=== PATIENT | female | born 1985 | race Caucasian/White ===

== ENCOUNTER 2020-07-03 16:16 | Emergency (ER) | payer BC, SELFPAY ==
[2020-07-03] VITALS (7 sets, daily range): BP systolic 124–147; BP diastolic 80–94; PULSE 61–73; RESP 15–21; TEMP 36.5–37; O2SAT 99–100
--- NOTE | 2020-07-03 17:03 | ECG_ITS ---
Measurements Intervals [place] Rate: 71 P: 58 HI: 130 QRS: 22 QRSD: 90 T: 49 QT: 382 QTc: 418 Interpretive Statements SINUS RHYTHM LOW QRS VOLTAGE IN PRECORDIAL LEADS BORDERLINE ECG Electronically Signed On 07-03-2020 18:24:12 BURN TABLE OPERATOR by Figueroa Braswell D.O.
[2020-07-03 17:11] LABS: Basophils Absolute Auto 0.1 K/mm3 (0.0-0.1); Basophils Percent Auto 0.6 % (0.2-1.2); Eosinophils Absolute Auto 0.3 K/mm3 (0-0.3); Eosinophils Percent Auto 3.8 % (0-4.4); Hematocrit 38.5 % (37.0-47.0); Hemoglobin 13.1 g/dL (12.0-15.0); Immature Granulocyte Absolute 0.02 K/mm3 (0.00-0.031); Immature Granulocyte Percent A 0.3 % (0-0.5); Lymphocytes Absolute Auto 2.69 K/mm3 (0.9-3.2); Lymphocytes Percent Auto 34.9 % (18.3-44.2); Mean Corpuscular Hemoglobin 32.7 pg (26-34); Mean Platelet Volume 9.8 fl (7.4-10.4); Monocytes Absolute Auto 0.6 K/mm3 (0.1-0.6); Monocytes Percent Auto 8.3 % (2.6-8.5); Neutrophils Percent Auto 52.1 % (45.5-73.1); Platelet Count Result 238 k/mm3 (150-375); Red Blood Count 4.01 M/mm3 (4.2-5.4); Red Cell Distribution Width 12.8 % (11.5-14.5); White Blood Count 7.7 K/mm3 (4.5-10.0)
[2020-07-03 17:26] LABS: Anion Gap 5 mmol/L (8-16); Blood Urea Nitrogen 8 mg/dL (7-17); Calcium 8.1 mg/dL (8.4-10.2); Carbon Dioxide 25 mmol/L (22-30); Chloride 108 mmol/L (98-107); Estimated CRCL calculation 80 ml/min; Estimated Glomerular Filt Rate > 60; Glucose 83 mg/dL (65-105); Potassium 3.8 mmol/L (3.4-5.0); Sodium 138 mmol/L (137-145)
[2020-07-03] MEDS: SODIUM CHLORIDE 0.9% IV 1,000 ML 999 ML IV CONT (19:02)
[2020-07-03 19:05] LABS: Add Urine Microscopic? NO; Appearance Urine Clear (Clear); Bacteria Urine Trace /hpf; Bilirubin Urine Negative (Negative); Blood Urine Negative (Negative); Color Urine Straw (Yellow); Glucose Urine UA Negative (Negative); Ketones Urine Negative (Negative); Leukocyte Esterase Ur Negative LEU/UL (Negative); Mucus Urine Rare /lpf; Nitrate Urine Negative (Negative); Protein Urine Negative (Negative); Specific Grav Ur 1.011 (1.001-1.035); Squamous Epithelial Cell Urine Rare /hpf (Few); Urobilinogen Urine Negative mg/dL (<2.0); WBC Urine 0-3 /hpf
--- NOTE | 2020-07-03 19:53 | PC.NURSE ---
pt declined morphine, would like tylenol if possible
--- NOTE | 2020-07-03 19:55 | PC.NURSE ---
RN informed Dr. Boone that pt does not want morphine and would like tylenol instead. verbal order for mg of tylenol po.
--- NOTE | 2020-07-03 20:14 | ED.DIZZY ---
HPI - Dizziness General Chief Complaint: Syncope Stated Complaint: dizzy, diarrhea, syncopal episode wednesday Time Seen by Provider: 07/03/20 18:03 Source: patient Mode of arrival: ambulatory Limitations: no limitations History of Present Illness HPI Narrative: 34-year-old with a history of gastric bypass here with complaints of dizziness since yesterday. Patient states that every time she stands up from a sitting position she gets extremely dizzy. She states that she passed out for few seconds yesterday at work. Complains of headache on and off. No history of nausea or vomiting. She states that her p.o. intake has been less for last few days. No history of abdominal pain. MD elicited complaint: dizziness and near syncope Onset (ago): day(s) (1) Severity: moderate Description: near-syncope Context: change in body position History of similar symptoms: No Exacerbating factors: change in body position Relieving factors: lying down Associated symptoms: denies other symptoms Related Data Home Medications Medication Instructions Recorded Confirmed pantoprazole 40 mg tablet,delayed 40 mg PO QAM 10/04/19 10/04/19 release Allergies Allergy/AdvReac Type Severity Reaction Status Date / Time No Known Allergies Allergy Unverified 10/21/17 15:45 Review of Systems Review of Systems: All systems reviewed & are unremarkable except as noted in HPI and below Constitutional: Constitutional: Reports no additional constitutional complaints Eyes: Eyes: Reports no additional eye complaints ENT: Reports system reviewed and no additional complaints, except as documented Cardiovascular: Cardiovascular: Reports no additional cardiovascular complaints Respiratory: Respiratory: Reports no additional respiratory complaints Gastrointestinal: Gastrointestinal: Reports no additional gastrointestinal complaints Musculoskeletal: Musculoskeletal: Reports no additional musculoskeletal complaints Neurologic: Reports system reviewed and no additional complaints, except as documented [facility] Past Medical History Medical History COVID-19 virus detected (09/20/19) Fatigue Gastric ulcer GERD (gastroesophageal reflux disease) GERD (gastroesophageal reflux disease) IBS (irritable bowel syndrome) Irritable bowel syndrome with constipation and diarrhea Obesity Seasonal allergic rhinitis Syncope Surgical History Surgical History H/O: hysterectomy (~2018) Hx of gastric bypass (~2019) gastric sleeve Family History Family History Mother Fibromyalgia Hypertension Father Lung cancer Grandparent Breast cancer Grandparent Carcinoma of colon Other Family history of arthritis Family history of malignant neoplasm Social History Social History Smoking status: Never smoker Alcohol intake: current Exam Narrative: Exam Narrative: GENERAL: Well-appearing, well-nourished, and in no acute distress. HEAD: Normocephalic, atraumatic. EYES: PERRLA and EOMI.. NECK: Supple. CHEST: Clear to auscultation. No respiratory distress. HEART: Regular rate and rhythm. No murmur heard. Normal peripheral pulses. ABDOMEN: Soft, nontender, nondistended, normal active bowel sounds. EXTREMITIES: Normal range of motion. No edema. SKIN: Warm, dry, no rash. NEURO: No focal deficits. Alert and oriented x3. PSYCH: Normal mood and affect. Course Course Emergency Course: Patient is not orthostatic however I did give her a liter of normal saline. Patient started feeling much better, I discussed lab and EKG findings with the patient and the family. Advised to drink plenty of fluids as much she can tolerate, follow-up with her primary doctor. Vital Signs Vital signs: Vital Signs Temperature 37.0 C 07/03/20 16:55 Pulse Rate 69 07/03/20 16:55 Respiratory Rate
[2020-07-03] MEDS: ACETAMINOPHEN 325 MG TABLET 650 MG PO (20:26)
[2020-07-03] MEDS: ONDANSETRON INJ 4 MG/2 ML VIAL IV PUSH (20:29)
== END 2020-07-03 20:38 | disposition home or self-care (01) ==
PROVIDERS: Emergency Provider Family Medicine; PCP Family Medicine
DX: R55 Syncope and collapse (principal); E86.0 Dehydration; K21.9 Gastro-esophageal reflux disease without esophagitis; K58.2 Mixed irritable bowel syndrome; Z98.84 Bariatric surgery status; Z86.16 Personal history of COVID-19; R94.31 Abnormal electrocardiogram [ECG] [EKG]
CPT/HCPCS: 36415; 80048; 81003; 85025; 93005; 96361; 96374; 99284; A9270; J2405; J7030

== ENCOUNTER 2020-07-04 09:53 | Outpatient (CLI) | payer BC, SELFPAY ==
--- NOTE | ~2020-07-04 | XR_ITS ---
EXAMINATION: XR chest 2V EXAM DATE: 07/04/2020 10:09 INDICATION: R55 - Syncope and collapse, dizziness, sob, rapid heart rate. TECHNIQUE: Frontal and lateral projections of the chest obtained and reviewed. Comparison is made to prior examination from 02/07/2010. FINDINGS: The lungs are clear. There are no pleural effusions. The cardiomediastinal silhouette is within normal limits. There is no pneumothorax suspected. The bones and soft tissues are unremarkab le. IMPRESSION: No acute cardiopulmonary findings. Reviewed, dictated and finalized at location B. ORNE WEAPONS TECHNICAL MANAGER
== END 2020-07-04 09:54 | disposition home or self-care (01) ==
PROVIDERS: PCP Family Medicine; Visit Provider Family Medicine
DX: R55 Syncope and collapse (principal)
CPT/HCPCS: 71046

== ENCOUNTER → 2021-11-24 15:53 | Outpatient (CLI) | payer BC, SELFPAY ==
--- NOTE | ~2021-11-24 | XR_ITS ---
EXAMINATION: XR chest 2V 11/24/2021 16:01 INDICATION: Cough. PROCEDURE: 2 view chest COMPARISON: Comparison to multiple prior studies sequentially, with oldest reviewed study dated 02/07. FINDINGS: The lungs are clear. The cardiomediastinal silhouette is within normal limits. There are no pleural effusions. There is no pneumothorax suspected. IMPRESSION: 1: NO ACUTE CARDIOPULMONARY DISEASE. Reviewed, dictated and finalized at location B.
== END ==
PROVIDERS: PCP Nurse Practitioner Family; Visit Provider Nurse Practitioner Family
DX: R05.9 Cough, unspecified (principal)
CPT/HCPCS: 71046

== ENCOUNTER 2022-03-03 10:48 | Emergency (ER) | payer BC, SELFPAY ==
--- NOTE | ~2022-03-03 | CT_ITS ---
EXAMINATION: CT brain wo con DATE: 03/03/2022 12:07 INDICATION: Dizziness. TECHNIQUE: Computed tomography (CT) of the head was performed without intravenous contrast. The mA wa s adjusted according to patient size. Iterative reconstruction technique was employed. The dose-lengt h product was 605.33 mGy-cm. COMPARISON: None FINDINGS: There is no intracranial hemorrhage, acute infarction, or abnormal intracranial mass lesion . The ventricles are normal in size. The orbits are normal. The paranasal sinuses are clear. The mast oid air cells are normal. IMPRESSION: 1. Normal brain. Reviewed, dictated and finalized at location A. IMPRESSION: 1. Normal brain.
--- NOTE | ~2022-03-03 | XR_ITS ---
EXAMINATION: XR chest 2V DATE: 03/03/2022 11:33 INDICATION: Shortness of breath and cough TECHNIQUE: PA and lateral views of the chest were obtained. COMPARISON: Chest radiograph dated 11/24/2021 FINDINGS: The lungs remain clear with no focal airspace opacities, pulmonary edema, pleural effusion or pneumot horax. The cardiomediastinal silhouette is normal. Mild thoracic spondylosis. Bilateral breast implan ts. IMPRESSION: 1. No acute cardiopulmonary disease. Reviewed, dictated and finalized at location A.
[2022-03-03 10:55] VITALS: BP 128/95; PULSE 87; RESP 16; TEMP 36.9; O2SAT 100
--- NOTE | 2022-03-03 10:57 | ECG_ITS ---
Measurements Intervals [place] Rate: 75 P: 74 [place]: 133 QRS: 23 QRSD: 85 T: 42 QT: 368 QTc: 413 Interpretive Statements SINUS RHYTHM LOW QRS VOLTAGE IN PRECORDIAL LEADS BORDERLINE R WAVE PROGRESSION, ANTERIOR LEADS BORDERLINE ECG NO PREVIOUS ECG AVAILABLE FOR COMPARISON Electronically Signed On 03-03-2022 12:09:39 CDT by Figueroa Braswell D.O.
[2022-03-03 11:15] VITALS: PULSE 65
[2022-03-03 11:19] LABS: Basophils Absolute Auto 0.1 K/mm3 (0.0-0.1); Basophils Percent Auto 1.1 % (0.2-1.2); Eosinophils Absolute Auto 0.1 K/mm3 (0-0.3); Eosinophils Percent Auto 2.5 % (0-4.4); Hematocrit 43.7 % (37.0-47.0); Hemoglobin 14.9 g/dL (12.0-15.0); Immature Granulocyte Absolute 0.01 K/mm3 (0.00-0.031); Immature Granulocyte Percent A 0.2 % (0-0.5); Lymphocytes Absolute Auto 1.79 K/mm3 (0.9-3.2); Lymphocytes Percent Auto 33.8 % (18.3-44.2); Mean Corpuscular HGB Conc 34.1 g/dl (32-36); Mean Corpuscular Hemoglobin 33.3 pg (26-34); Mean Corpuscular Volume 97.5 fl (80-100); Mean Platelet Volume 9.7 fl (7.4-10.4); Monocytes Absolute Auto 0.4 K/mm3 (0.1-0.6); Monocytes Percent Auto 7.7 % (2.6-8.5); Neutrophils Absolute Auto 2.9 K/mm3 (1.3-6.7); Neutrophils Percent Auto 54.7 % (45.5-73.1); Platelet Count Result 298 k/mm3 (150-375); Red Blood Count 4.48 M/mm3 (4.2-5.4); Red Cell Distribution Width 11.7 % (11.5-14.5); White Blood Count 5.3 K/mm3 (4.5-10.0)
[2022-03-03 11:23] VITALS: BP 128/89; PULSE 89; RESP 17; O2SAT 100
[2022-03-03 11:31] LABS: Alanine Aminotransferase 18 U/L (6-35); Albumin Level 4.1 g/dL (3.5-5.1); Alkaline Phosphatase 48 U/L (38-126); Anion Gap 11 mmol/L (8-16); Aspartate Amino Transferase 20 U/L (14-36); Bilirubin,Total 0.6 mg/dL (0.2-1.3); Blood Urea Nitrogen 7 mg/dL (7-17); Calcium 8.5 mg/dL (8.4-10.2); Carbon Dioxide 23 mmol/L (22-30); Chloride 104 mmol/L (98-107); Estimated CRCL calculation 69 ml/min; Estimated Glomerular Filt Rate > 60; Glucose 87 mg/dL (65-110); Potassium 3.7 mmol/L (3.4-5.0); Sodium 138 mmol/L (137-145)
[2022-03-03 12:07] LABS: Appearance Urine Clear (Clear); Bilirubin Urine Negative (Negative); Blood Urine Negative (Negative); Glucose Urine UA Negative (Negative); Ketones Urine Negative (Negative); Leukocyte Esterase Ur Negative LEU/UL (Negative); Nitrate Urine Negative (Negative); Protein Urine Negative (Negative); Urobilinogen Urine 0.2 mg/dL (<2.0)
[2022-03-03 12:15] LABS: Add Urine Microscopic? NO; Color Urine Light Yellow (Yellow)
[2022-03-03 12:17] VITALS: BP 128/82; PULSE 91; RESP 16; O2SAT 100
--- NOTE | 2022-03-03 12:17 | ED.SOB ---
HPI - SOB/Dyspnea General Chief Complaint: Shortness of Breath/Dyspnea Stated Complaint: SOB Time Seen by Provider: 03/03/22 11:05 History of Present Illness HPI Narrative: 36-year-old female history of migraines and anxiety presents to the emergency room complaints exertional dyspnea for 6 days. Also states that she had 1 episode of chest pressure that lasted an hour. Patient also endorses dizziness, that is worse with movement. Admits to bilateral leg cramps. Denies EtOH or recreational drug use. Related Data Home Medications Medication Instructions Recorded Confirmed esomeprazole magnesium 20 mg 20 mg PO DAILY 07/04/20 02/03/22 capsule,delayed release (Nexium 24HR) cetirizine 10 mg tablet (Zyrtec) 10 mg PO DAILY PRN 02/03/22 02/03/22 cyanocobalamin (vitamin B-12) 500 mcg PO DAILY 02/03/22 02/03/22 1,000 mcg tablet Allergies Allergy/AdvReac Type Severity Reaction Status Date / Time No Known Allergies Allergy Verified 03/03/22 11:16 [facility] Past Medical History Medical History (Updated 03/03/22 @ 13:47 by Salo Mercado, DESIGN SUPERVISOR) Adult BMI 29.0-29.9 kg/sq m Anxiety BMI 28.0-28.9,adult Chronic dysfunction of left eustachian tube (~10/2021) Cough COVID-19 virus detected (09/20/19) Exposure to COVID-19 virus Fatigue Folate deficiency (08/09/21) Level low at 3.21 with hemoglobin 13.8 08/09/2021. Gastric ulcer GERD (gastroesophageal reflux disease) GERD (gastroesophageal reflux disease) Hypocalcemia IBS (irritable bowel syndrome) Irritable bowel syndrome with constipation and diarrhea Migraine without aura and without status migrainosus, not intractable Nausea Obesity Overweight (BMI 25.0-29.9) Seasonal allergic rhinitis Shortness of breath Syncope UTI (urinary tract infection) Vitamin B12 deficiency (08/09/21) level low at 352 with goal greater than 400 on 08/09/2021. Surgical History Surgical History H/O: hysterectomy (~2017) Hx of gastric bypass (~2019) gastric sleeve Family History Family History Mother Fibromyalgia Hypertension Father Lung cancer Grandparent Breast cancer Grandparent Carcinoma of colon Other Family history of arthritis Family history of malignant neoplasm Social History Social History Smoking status: Never smoker Alcohol intake: current Alcohol use details: socially Substance use: never Substance use type: does not use Course Vital Signs Vital signs: Vital Signs Temperature 36.9 C 03/03/22 10:55 Pulse Rate 87 03/03/22 10:55 Respiratory Rate 16 03/03/22 10:55 Blood Pressure 128/95 H 03/03/22 10:55 Pulse Oximetry 100 03/03/22 10:55 Oxygen Delivery Room Air 03/03/22 10:55 Temperature 36.9 C 03/03/22 10:55 Pulse Rate 76 03/03/22 13:02 Respiratory Rate 15 03/03/22 13:02 Blood Pressure 126/83 03/03/22 13:02 Pulse Oximetry 100 03/03/22 13:02 Oxygen Delivery Room Air 03/03/22 10:55 MDM - SOB/Dyspnea MDM Narrative Medical decision making narrative: 36-year-old female presented the emergency room for 1 week of exertional dyspnea. CBC and CMP were unremarkable. Chest x-ray shows no acute cardiopulmonary disease. D-dimer was negative. Single troponin was negative EKG showed no signs of ischemia. No signs of anemia. COVID test was negative. This dorian findings with patient tolerant this could be thyroid related or vitamin deficiency. Patient will follow up with her PCP Lab Data Result diagrams: 03/03/22 11:02 03/03/22 11:02 Labs: Lab Results 03/03/22 03/03/22 03/03/22 Range/Units 11:02 11:02 11:59 WBC 5.3 (4.5-10.0) K/mm3 RBC 4.48 (4.2-5.4) M/mm3 Hgb 14.9 (12.0-15.0) g/dL Hct 43.7 (37.0-47.0) % MCV 97.5 (80-100) fl MCH 33.3 (26-34) pg MCHC 3
[2022-03-03 13:01] LABS: D Dimer < 0.27 ug/mL (<0.48)
[2022-03-03 13:02] VITALS: BP 126/83; PULSE 76; RESP 15; O2SAT 100
[2022-03-03 13:03] LABS: SARS-CoV-2 RNA PCR Negative
[2022-03-03 13:58] VITALS: BP 123/85; PULSE 85; RESP 19; O2SAT 100
[2022-03-03 14:32] LABS: Thyroid Stimulating Hormone 0.835 uIU/mL (0.465-4.680)
== END 2022-03-03 13:59 | disposition home or self-care (01) ==
PROVIDERS: Emergency Medicine; Emergency Provider Nurse Practitioner Family; PCP Physician Assistant
DX: R06.02 Shortness of breath (principal); K21.9 Gastro-esophageal reflux disease without esophagitis; F41.9 Anxiety disorder, unspecified; E53.8 Deficiency of other specified B group vitamins; Z86.16 Personal history of COVID-19; Z98.84 Bariatric surgery status; Z20.822 Contact with and (suspected) exposure to COVID-19
CPT/HCPCS: 36415; 70450; 71046; 80053; 81003; 84443; 85025; 85380; 93005; 99284; C9803; U0003; U0005

== ENCOUNTER 2022-07-02 12:44 | Outpatient (CLI) | payer BC, SELFPAY ==
--- NOTE | ~2022-07-02 | MR_ITS ---
EXAMINATION: MR cervical spine wo/w con DATE: 07/02/2022 14:35 INDICATION: Multiple sclerosis. TECHNIQUE: Magnetic resonance imaging (MRI) of the cervical spine was performed without and with 13 m L MultiHance intravenous contrast. COMPARISON: None FINDINGS: Bone alignment is normal. Vertebral body heights and intervertebral disc heights are normal . The discs do not extend beyond the endplate margins. The spinal cord signal intensity is normal. Th e following disc levels are specifically discussed: C2-C3: The disc does not extend beyond the endplate margin. There is no uncovertebral joint osteoarth ritis. There is no facet joint osteoarthritis. There is no neural foraminal stenosis. There is no chito tral canal stenosis. C3-C4: The disc does not extend beyond the endplate margin. There is mild right uncovertebral joint o steoarthritis. There is no facet joint osteoarthritis. There is no neural foraminal stenosis. There i s no central canal stenosis. C4-C5 through C6-C7: The disc does not extend beyond the endplate margin. There is no uncovertebral j oint osteoarthritis. There is no facet joint osteoarthritis. There is no neural foraminal stenosis. T here is no central canal stenosis. C7-T1: The disc does not extend beyond the endplate margin. There is no uncovertebral joint osteoarth ritis. There is mild bilateral facet joint osteoarthritis. There is no neural foraminal stenosis. The re is no central canal stenosis. IMPRESSION: 1. Normal spinal cord. Reviewed, dictated and finalized at location A. BLEACHER IMPRESSION: 1. Normal spinal cord.
--- NOTE | ~2022-07-02 | MR_ITS ---
. EXAMINATION: MR brain/brain stem wo/w con DATE: 07/02/2022 14:34 INDICATION: Multiple sclerosis. TECHNIQUE: Magnetic resonance imaging (MRI) of the brain and brainstem was performed without and with 13 mL MultiHance intravenous contrast. COMPARISON: Head CT 03/03/2022 FINDINGS: There are 4 small foci of increased T2-weighted signal intensity in the cerebral white gerald er, which is normal for the patient's age. There is no intracranial hemorrhage, acute infarction, or abnormal intracranial mass lesion. The ventricles are normal in size. There is mild mucosal thickenin g in the paranasal sinuses. The orbits are normal. The mastoid air cells are normal. IMPRESSION: 1. Normal aging brain. Reviewed, dictated and finalized at location A. E SPECIALIST IMPRESSION: 1. Normal aging brain.
--- NOTE | ~2022-07-02 | MR_ITS ---
EXAMINATION: MR thoracic spine wo/w con DATE: 07/02/2022 14:35 INDICATION: Multiple sclerosis. TECHNIQUE: Magnetic resonance imaging (MRI) of the thoracic spine was performed without and with 13 m L MultiHance intravenous contrast. COMPARISON: None FINDINGS: There is 6 degrees dextrocurvature of thoracic spine. There are Schmorl's nodes of the infe rior endplates of T7 and T8. There is mildly decreased disc height at T6-T7. At T6-T7, there is a lef t central extrusion with mild central canal stenosis and ventral indentation of the spinal cord. The facet joints are unremarkable. No neural foraminal stenosis. The spinal cord signal intensity is norm al. The conus medullaris is at T12. IMPRESSION: 1. No evidence of multiple sclerosis. 2. Mild thoracic spondylosis. Reviewed, dictated and finalized at location A. PILER
== END 2022-07-02 12:45 ==
PROVIDERS: PCP Physician Assistant
DX: G35 Multiple sclerosis (principal); M47.894 Other spondylosis, thoracic region
CPT/HCPCS: 70553; 72156; 72157; A9577

== ENCOUNTER 2024-01-10 10:46 | Outpatient (CLI) | payer OTHER, SELFPAY ==
--- NOTE | 2024-01-10 | EST_ITS ---
Patient Info Name: Kathie Gamboa Age: 38 years : 1985 Gender: Female Ht: 63 in Wt: 175 lbs BSA: 1.91 m2 HR: 79 bpm BP: 131 / 91 mmHg Heart Rhythm: Sinus Rhythm Exam Date: 01/10/2024 11:06 AM Exam Location: Echo Lab Patient Status: Outpatient Admit Date: 01/10/2024 Staff Ordering Physician: Linda, Liv SCHWARTZ Attending Provider: LindaLiv PA-C Exercise Technologist: Esther Rodriguez CT Nurse: Prema Rivero APN Exam Type: CA stress test treadmill Study Info Indications R06.09 - Other forms of dyspnea A treadmill exercise stress test was performed. Summary 1. Normal sinus rhythm - normal ECG. 2. No abnormal ST/T wave changes with exercise. 3. Clinically and electrocardiographically negative exercise stress test to 86% of age predicted maximum heart rate. Protocol: Abdoul Stress ECG Details Stage: REST Duration (min): 1 min : 3 sec Speed (mph): 0.0 Grade (%): 0 HR (bpm): 72 SBP (mmHg): 131 DBP (mmHg): 91 METS: --- Stage: REST Duration (min): 17 min : 1 sec Speed (mph): 0.0 Grade (%): 0 HR (bpm): 83 SBP (mmHg): 131 DBP (mmHg): 91 METS: --- Stage: STAGE 1 Duration (min): 1 min : 0 sec Speed (mph): 1.7 Grade (%): 10 HR (bpm): 105 SBP (mmHg): 131 DBP (mmHg): 91 METS: --- Stage: STAGE 1 Duration (min): 2 min : 0 sec Speed (mph): 1.7 Grade (%): 10 HR (bpm): 111 SBP (mmHg): 131 DBP (mmHg): 91 METS: --- Stage: STAGE 1 Duration (min): 3 min : 0 sec Speed (mph): 1.7 Grade (%): 10 HR (bpm): 108 SBP (mmHg): 163 DBP (mmHg): 65 METS: --- Stage: STAGE 2 Duration (min): 1 min : 0 sec Speed (mph): 2.5 Grade (%): 12 HR (bpm): 123 SBP (mmHg): 163 DBP (mmHg): 65 METS: --- Stage: STAGE 2 Duration (min): 2 min : 0 sec Speed (mph): 2.5 Grade (%): 12 HR (bpm): 125 SBP (mmHg): 163 DBP (mmHg): 65 METS: --- Stage: STAGE 2 Duration (min): 3 min : 0 sec Speed (mph): 2.5 Grade (%): 12 HR (bpm): 136 SBP (mmHg): 155 DBP (mmHg): 93 METS: --- Stage: STAGE 3 Duration (min): 1 min : 0 sec Speed (mph): 3.4 Grade (%): 14 HR (bpm): --- SBP (mmHg): 155 DBP (mmHg): 93 METS: --- Stage: STAGE 3 Duration (min): 1 min : 14 sec Speed (mph): 3.4 Grade (%): 14 HR (bpm): 153 SBP (mmHg): 155 DBP (mmHg): 93 METS: --- Stage: RECOVERY Duration (min): 0 min : 45 sec Speed (mph): 0.0 Grade (%): 0 HR (bpm): 125 SBP (mmHg): 155 DBP (mmHg): 93 METS: --- Stage: RECOVERY Duration (min): 1 min : 45 sec Speed (mph): 0.0 Grade (%): 0 HR (bpm): 103 SBP (mmHg): 155 DBP (mmHg): 93 METS: --- Stage: RECOVERY Duration (min): 2 min : 45 sec Speed (mph): 0.0 Grade (%): 0 HR (bpm): 93 SBP (mmHg): 145 DBP (mmHg): 86 METS: --- Stage: RECOVERY Duration (min): 3 min : 45 sec Speed (mph): 0.
--- NOTE | 2024-01-10 | ECHO_ITS ---
Patient Info Name: Kathie Gamboa Age: 38 years : 1985 Gender: Female Ht: 63 in Wt: 175 lbs BSA: 1.91 m2 HR: 76 bpm BP: 133 / 89 mmHg Heart Rhythm: Sinus Rhythm Technical Quality: Good Exam Date: 01/10/2024 12:18 PM Exam Location: Echo Lab Patient Status: Outpatient Admit Date: 01/10/2024 Staff Ordering Physician: TrentonLiv PA-C Corporate Strategy Associate: Gladys Carbajal RDCS Attending Provider: Liv Ramírez PA-C Exam Type: CA echo doppler color flow Study Info Indications R06.00 - Dyspnea, unspecified Complete two-dimensional, color flow and Doppler transthoracic echocardiogram is performed. Summary 1. Left ventricular chamber dimension is normal. 2. Left ventricular systolic function is normal, estimated at 65-70%. 3. The left ventricular diastolic function is normal. 4. Right ventricular systolic function is normal. 5. No significant valvular disease. Left Ventricle Left ventricular chamber dimension is normal. Left ventricular systolic function is normal, estimated at 65-70%. There is no increased left ventricular wall thickness. The left ventricular diastolic function is normal. Right Ventricle Right ventricular chamber dimension is normal. Right ventricular systolic function is normal. Left Atria Left atrial chamber dimension is normal. Right Atria Right atrial chamber dimension is normal. Atrial Septum Intact interatrial septum visualized by color flow imaging. Aortic Valve The aortic valve is not well visualized. There is no aortic valve stenosis. There is no aortic valve regurgitation. There is mild aortic valve calcification. Pulmonic Valve The pulmonic valve is not well visualized. Mitral Valve There is trace mitral valve regurgitation. Tricuspid Valve There is trace tricuspid valve regurgitation. Pericardium/Pleural The pericardium appears epicardial fat pad. There is no pericardial effusion. Inferior Vena Cava Normal inferior vena cava with >50% collapse upon inspiration consistent with normal right atrial pressure, 3 mmHg. Aorta The aortic root size at the sinus of Valsalva is normal. Left Ventricular Outflow Tract Name Value Normal LVOT 2D LVOT Diameter 2.0 cm LVOT Doppler LVOT Peak Gradient 5 mmHg LVOT Mean Gradient 2 mmHg LVOT VTI 17 cm LVOT VTI/AV VTI Ratio 0.7 LVOT Stroke Volume 52 ml LVOT CO 4.2 l/min LVOT CI 2.2 l/min/m2 Pulmonic Valve Name Value Normal RVOT Doppler RVOT Peak Gradient 1 mmHg PV Doppler PV Peak Gradient 4 mmHg Mitral Valve Name Va
== END 2024-01-10 10:47 | disposition home or self-care (01) ==
LOC: ANHCARD 10:52
PROVIDERS: PCP Physician Assistant; Visit Provider Physician Assistant
DX: R06.09 Other forms of dyspnea (principal)
CPT/HCPCS: 93017; 93306

== ENCOUNTER 2024-01-11 15:42 | Outpatient (CLI) | payer OTHER, SELFPAY ==
--- NOTE | ~2024-01-11 | CT_ITS ---
EXAMINATION: CTA chest DATE: 01/13/2024 12:01 CDT INDICATION: Dyspnea TECHNIQUE: Computed tomographic angiography (CTA) of the chest was performed with 100 mL Omnipaque-35 0 intravenous contrast. The dose-length product was 347.32 mGy-cm. Maximum intensity projection 3D-re constructions of the aorta and other arteries were constructed by the technologist on a separate work station. Automated exposure control and iterative reconstruction technique were employed. COMPARISON: None. FINDINGS: Heart size normal. No significant pleural or pericardial effusion. There are bilateral kenisha st implants. No thoracic lymphadenopathy. There are changes of gastric bypass with small hiatal herni a. No evidence for aortic aneurysm, dissection or pulmonary embolism. No thoracic lymphadenopathy. No focal airspace consolidation. No endobronchial lesions. No pneumothorax. IMPRESSION: 1. No acute cardiopulmonary disease. 2: Surgical changes of gastric bypass with hiatal hernia. Reviewed, dictated and finalized at location B.
== END 2024-01-11 15:43 | disposition home or self-care (01) ==
PROVIDERS: PCP Physician Assistant; Visit Provider Physician Assistant
DX: K44.9 Diaphragmatic hernia without obstruction or gangrene (principal); Z98.84 Bariatric surgery status
CPT/HCPCS: 71275; Q9967

== ENCOUNTER 2024-08-22 08:04 | Outpatient (CLI) | payer BC, SELFPAY | END 2024-08-22 08:05 | disposition home or self-care (01) | LOC: MICIMG 08:07 | PROVIDERS: PCP Physician Assistant; Visit Provider Nurse Practitioner | DX: N64.4 Mastodynia (principal) | CPT/HCPCS: 77062; 77066; G0279 ==